=== PATIENT | female | born 1955 | race Hispanic/Latino ===

== ENCOUNTER 2019-10-27 10:40 | Outpatient (CLI) | payer OTHER ==
--- NOTE | 2019-10-27 11:10 | RAD ---
EXAM: 2 views of the right knee HISTORY: Right knee osteoarthritis COMPARISON: None FINDINGS: No knee effusion is seen. There is mild to moderate tricompartmental joint space and osteop hyte formation consistent with osteoarthritis. There is no evidence of fracture or dislocation. IMPRESSION: Moderate right knee osteoarthritis
--- NOTE | 2019-10-27 11:10 | RAD ---
Left hand:2 views INDICATIONS:Hand pain COMPARISON:None FINDINGS: Mild degenerative change at the first carpal metacarpal joint. Metacarpals appear intact. Phalanges appear intact. MCP joints appear unremarkable. Minimal spurring from the DIP joints. No soft tissue abnormality. IMPRESSION: Mild degenerative changes
== END 2019-10-27 10:41 | disposition home or self-care (01) ==
LOC: BICRAD 10:40
PROVIDERS: ATTEND Internal Medicine
DX: Z02.71 Encounter for disability determination (principal); M17.11 Unilateral primary osteoarthritis, right knee; M18.12 Unilateral primary osteoarthritis of first carpometacarpal joint, left hand

== ENCOUNTER 2021-12-23 17:17 | Emergency (ER) | payer MEDICARE ==
[2021-12-23] MEDS ORDERED: Ondansetron PF 4 MG/2 ML Vial ONE (18:07)
[2021-12-23] MEDS ORDERED: Morphine 4 MG/ML VIAL ONE (18:07)
[2021-12-23 18:13] LABS: #Eosinphils 0.2 thou/uL (0.0-0.7); #Lymphocytes 1.9 thou/uL (1.20-3.40); #Monocytes 0.5 thou/uL (0.11-0.59); #Neutrophils 4.9 thou/uL (1.40-6.50); %Basophils 0.5 % (0.0-1.0); %Eosinophils 2.2 % (0.0-10.0); %Lymphocytes 25.2 % (21.0-51.0); %Monocytes 6.6 % (0.0-10.0); %Neutrophils 65.5 % (42.0-75.0); Hemoglobin 11.4 g/dL (12.0-16.0); Mean Corpuscular HGB CONC 33.1 g/dL (32.0-36.0); Mean Corpuscular Hemoglobin 31.9 pg (27.0-31.0); Mean Corpuscular Volume 96.2 fL (78.0-98.0); Mean Platelet Volume 8.8 fL (7.4-10.4); Platelet Count 178 thou/uL (130-400); RBC Distribution Width 11.8 % (11.5-14.5); Red Blood Cell (RBC) Count 3.57 mill/uL (4.20-5.40); White Blood Cell (WBC) Count 7.5 thou/uL (4.8-10.8)
[2021-12-23 18:25] LABS: PTT 31.3 sec (22.9-36.1); Prothrombin Time 13.7 sec (12.0-14.7)
[2021-12-23 18:26] LABS: D-Dimer Test 3.11 *mcg/mL (0.27-0.43)
[2021-12-23 18:36] LABS: ALT (SGPT) 26 U/L (8-55); AST (SGOT) 29 U/L (5-34); Alkaline Phosphatase 170 U/L (40-110); Anion Gap 14 mmol/L (10-20); BUN (Urea Nitrogen) 10 mg/dL (9.8-20.1); Bilirubin, Total 0.9 mg/dL (0.2-1.2); Calc. Creatinine Clearance 0 mL/min (70-130); Calcium 8.6 mg/dL (7.8-10.44); Carbon Dioxide 26 mmol/L (23-31); Chloride 102 mmol/L (98-107); Estimated GFR 90; Glucose 107 mg/dL (80-115); Potassium 3.9 mmol/L (3.5-5.1); Sodium 138 mmol/L (136-145)
== END 2021-12-23 20:57 | disposition home or self-care (01) ==
LOC: ERS 17:17
DX: G89.18 Other acute postprocedural pain (principal); M25.561 Pain in right knee; I10 Essential (primary) hypertension; E78.5 Hyperlipidemia, unspecified
CPT/HCPCS: 71045; 71275; 80053; 83880; 84484; 85025; 85379; 85610; 85730; 93005; 94760; 96374; 96375; J2270; J2405